=== PATIENT | female | born 1965 | race African-American/Black ===

== ENCOUNTER 2017-04-28 22:23 | Emergency (ER) | payer OTHER ==
[~2017-04-28] VITALS: Ht 170.2 cm; Wt 95.3 kg
[2017-04-29 02:06] VITALS: BP 130/76
== END 2017-04-29 02:23 | disposition home or self-care (01) ==
LOC: EDBD 22:23 → ER 22:34
DX: I10 Essential (primary) hypertension (principal)

== ENCOUNTER 2018-01-09 10:49 | Emergency (ER) | payer MEDICAID ==
[~2018-01-09] VITALS: Ht 157.5 cm; Wt 73.5 kg
[2018-01-09 10:59] VITALS: BP 125/90
[2018-01-09 11:54] LABS: Basophils # (auto) 0 uL; Basophils % (auto) 0.4 % (0.0-2.0); Eosinophils # (auto) 0.1 uL; Eosinophils % (auto) 1.8 % (0.0-7.0); Hemoglobin 14.4 g/dL (12.2-16.2); Lymphocytes % (auto) 24.8 % (10.0-50.0); Mean Corpuscular Hemoglobin 29.5 pg (28.0-32.0); Mean Corpuscular Hgb Conc. 33.6 g/dL (32.0-36.0); Mean Corpuscular Volume 87.8 fL (80.0-100.0); Monocytes # (auto) 0.5 uL; Monocytes % (auto) 6.5 % (0.0-12.0); Neutrophils # (auto) 5.2 uL; Neutrophils % (auto) 66.5 % (37.0-80.0); Nucleated Red Blood Cells % 0.1 %; Platelet Count (auto) 342 10^3/uL (140-450); Red Cell Distribution Width 14.3 % (11.8-14.3); White Blood Cell 7.9 10^3/uL (4.4-10.8)
[2018-01-09 12:08] LABS: Alanine Aminotransferase 27 U/L (13-56); Albumin 3.7 g/dL (3.4-5.0); Alkaline Phosphatase 103 U/L (45-117); Anion Gap 6 (5-15); Aspartate Aminotransferase 17 U/L (15-37); Bilirubin, Total 0.3 mg/dL (0.2-1.0); Blood Urea Nitrogen 9 mg/dL (7-18); Calcium 9.4 mg/dL (8.5-10.1); Carbon Dioxide 31 mmol/L (21-32); Chloride 101 mmol/L (98-107); GFR African American 155 mL/min; GFR Non-African American 128 mL/min; Glucose 92 mg/dL (74-106); Magnesium 2.3 mg/dL (1.6-2.6); Potassium 3.5 mmol/L (3.5-5.1); Sodium 138 mmol/L (136-145); Total Protein 8.2 g/dL (6.4-8.2)
== END 2018-01-09 13:57 | disposition home or self-care (01) ==
LOC: ER 10:49
DX: J45.909 Unspecified asthma, uncomplicated (principal); I10 Essential (primary) hypertension
CPT/HCPCS: 36415; 71046; 80053; 83735; 84484; 85025; 93005